=== PATIENT | female | born 1990 | race Asian ===

== ENCOUNTER 2021-05-05 09:05 | Emergency (ER) | payer OTHER, BC ==
[~2021-05-05] VITALS: Ht 149.9 cm; Wt 47.7 kg
[~2021-05-05 09:05] MED LIST: RALTEGRAVIR 400 MG TAB (ISENTRESS) PO SCH; TRUVADA 200MG/300MG TABLET PO SCH
[2021-05-05 09:27] VITALS: BP 104/58
[2021-05-05] MEDS ORDERED: CLAR10CA3 PO (09:30)
[2021-05-05] MEDS ORDERED: PROAAER10 INH (09:31)
--- OUTSIDE RECORDS SUMMARY | 2021-05-05 09:39 | CCD ---
[facility] Address Unknown Phone Unavailable Support Name Relationship Address Phone [facility] Next Of Kin [address], [place] [id number] Re-disclosure Warning The records that you are about to access may contain information from federally-assisted alcohol or drug abuse programs. If such information is present, then the following federally mandated warning applies: This information has been disclosed to you from records protected by federal confidentiality rules (42 CFR part 2). The federal rules prohibit you from making any further disclosure of this information unless further disclosure is expressly permitted by the written consent of the person to whom it pertains or as otherwise permitted by 42 CFR part 2. A general authorization for the release of medical or other information is NOT sufficient for this purpose. The Federal rules restrict any use of the information to criminally investigate or prosecute any alcohol or drug abuse patient.The records that you are about to access may contain highly sensitive health information, the redisclosure of which is protected by Article 27-F of the [facility] Public Health law. If you continue you may have access to information: Regarding HIV / AIDS; Provided by facilities licensed or operated by the [facility] Office of Mental Health; or Provided by the [facility] Office for People With Developmental Disabilities. If such information is present, then the following [facility] mandated warning applies: This information has been disclosed to you from confidential records which are protected by state law. State law prohibits you from making any further disclosure of this information without the specific written consent of the person to whom it pertains, or as otherwise permitted by law. Any unauthorized further disclosure in violation of state law may result in a fine or [place] [facility] sentence or both. A general authorization for the release of medical or other information is NOT sufficient authorization for further disc losure. Medications Medication Brand Name Start Date Product Form Dose Route Admi nistrative Instructions Pharmacy Instructions Status Indications Reaction Description Data Source(s) 0.025 % 05/03/2021 12:00:00 AM EDT cream 15 APPLY TOPICALLY TWO TIMES A DAY FOR 10 DAYS APPLY TOPICALLY TWO TIMES A DAY FOR 10 DAYS SOLD: 05/03/2021 [facility] 90 mcg/actuation 05/03/2021 12:00:00 AM EDT HFA aerosol inha ler 6 INHALE 1 TO 2 PUFFS EVERY 4 HOURS NEEDED FOR WHEEZING FOR 10 DAYS INHALE 1 TO 2 PUFFS EVERY 4 HOURS NEEDED FOR WHEEZING FOR 10 DAYS SOLD: 05/03/2021 [facility] 1 % 05/03/2021 12:00:00 AM EDT cream 30 APPLY TOPICALLY TWO TIMES A DAY FOR 14 DAYS APPLY TOPICALLY TWO TIMES A DAY FOR 14 DAYS SOLD: 05/03/2021 [facility] 60 mcg (15 mcg x 4)/0.5 mL 05/01/2021 12:00:00 AM EDT syring e 0 INJECT DIRECTED INJECT DIRECTED SOLD: 05/01/2021 [facility] NITROFURANTOIN, MACROCRYSTALS 25 MG / Ni trofurantoin, Monohydrate 75 MG Oral Capsule 100 mg NITROFURANTOIN MONOHYD/M-CRYST 03/28/2021 12:00:00 AM EDT ca psule 14 TAKE ONE CAPSULE BY MOUTH TWICE A DAY FOR 7 DAYS TAKE ONE CAPSULE BY MOUTH TWICE A DAY FOR 7 DAYS SOLD: 03/28/2021 [facility] montelukast 5 MG Chewable Tablet MONTELUKAST SODIUM 03/06/2021 1 2:00:00 AM EDT tablet,chewable 30 CHEW ONE TABLET BY MOUTH EVERY D AY AT BEDTIME CHEW ONE TABLET BY MOUTH EVERY DAY AT BEDTIME SOLD: 04/11/2021 [facility] montelukast 5 MG Chewable Tablet MONTELUKAST SODIUM 03/06/2021 1 2:00:00 AM EDT tablet,chewable 30 CHEW ONE TABLET BY MOUTH EVERY D AY AT BEDTIME CHEW ONE TABLET BY MOUTH EVERY DAY AT BEDTIME SOLD: 03/11/2021 [facility] Insurance Providers Payer name Policy type / Coverage type Policy ID Covered libertarian ID Covered libertarian's relationship to goodman Policy [place] [facility] Information [phone] [id number] SP [id number] [facility] [id number] SP [id number] Problems, Conditions, and Diagnoses No Information Surgeries/Procedures No Information Results No Information Social History No Information
[2021-05-05] MEDS ORDERED: EXPOSURE KIT-ADULT 7 DAY SUPPLY PO ONE (09:50)
[2021-05-05] MEDS ORDERED: TRUVADA 200MG/300MG TABLET PO ONE (10:00)
[2021-05-05] MEDS ORDERED: RALTEGRAVIR 400 MG TAB (ISENTRESS) PO ONE (10:00)
[2021-05-05] MEDS ORDERED: RALT40TA PO (10:01)
[2021-05-05] MEDS ORDERED: EMTR1TAB16 PO (10:01)
[2021-05-05 10:06] LABS: BASO % 0.3 % (0.0-1.0); EOS # 0.1 10^3/uL (0.0-0.5); EOS % 1.7 % (0.0-3.0); HEMATOCRIT 38.3 % (36.0-47.0); HEMOGLOBIN 12.8 g/dl (12.0-15.5); LYMPH # 1.8 10^3/uL (1.5-5.0); LYMPH % 25.2 % (24.0-44.0); MEAN CORPUSCULAR HGB CONC 33.4 g/dl (32.0-36.5); MEAN CORPUSCULAR VOLUME 95.8 fl (80.0-96.0); MONO # 0.4 10^3/uL (0.0-0.8); MONO % 6.1 % (2.0-8.0); NEUTROPHILS # 4.7 10^3/uL (1.5-8.5); NEUTROPHILS % 66.3 % (36.0-66.0); PLATELET COUNT, AUTOMATED 290 10^3/uL (150-450); WHITE BLOOD COUNT 7.1 10^3/uL (4.0-10.0)
[2021-05-05] MEDS ORDERED: ONDA4TAB6 PO (10:11)
[2021-05-05 10:34] LABS: HCG, SERUM QUALITATIVE NEGATIVE (NEGATIVE)
[2021-05-05 10:35] LABS: ALT/SGPT 16 U/L (12-78); BILIRUBIN,TOTAL 0.5 MG/DL (0.2-1.0); BLOOD UREA NITROGEN 9 MG/DL (7-18); CALCIUM LEVEL 9.4 MG/DL (8.5-10.1); CARBON DIOXIDE LEVEL 27 MEQ/L (21-32); CHLORIDE LEVEL 112 MEQ/L (98-107); GLOMERULAR FILTRATION RATE > 60.0 (>60); GLUCOSE, FASTING 87 MG/DL (70-100); POTASSIUM SERUM 4.5 MEQ/L (3.5-5.1); SODIUM LEVEL 144 MEQ/L (136-145); TOTAL PROTEIN 7.2 GM/DL (6.4-8.2)
[2021-05-05 10:42] LABS: HEPATITIS B SURFACE ANTIBODY POSITIVE (POSITIVE)
[2021-05-05 10:53] LABS: HEPATITIS B SURFACE ANTIGEN NEGATIVE (NEGATIVE)
[2021-05-05 11:21] LABS: HEPATITIS C VIRUS ABY INDEX < 0.0 INDEX (<0.8)
[2021-05-05 11:22] LABS: HIV SCREEN CENTAUR EXPOSED NEGATIVE (NEGATIVE)
== END 2021-05-05 10:30 | disposition home or self-care (01) ==
LOC: M ED 09:05
DX: S61.233A Puncture wound without foreign body of left middle finger without damage to nail, initial encounter (principal); Z77.21 Contact with and (suspected) exposure to potentially hazardous body fluids; W46.1XXA Contact with contaminated hypodermic needle, initial encounter; Y92.238 Other place in hospital as the place of occurrence of the external cause; Y93.9 Activity, unspecified; Y99.0 Civilian activity done for income or pay; J45.909 Unspecified asthma, uncomplicated; F41.9 Anxiety disorder, unspecified; Z79.899 Other long term (current) drug therapy

== ENCOUNTER → 2021-10-14 | Outpatient (REF) ==
[~2021-10-14] MED LIST changes: +CLAR10CA3 PO; +EMTR1TAB16 PO; +ONDA4TAB6 PO; +PROAAER10 INH; +RALT40TA PO; -RALTEGRAVIR 400 MG TAB (ISENTRESS) PO SCH; -TRUVADA 200MG/300MG TABLET PO SCH
[2021-10-14 08:37] LABS: RSV AMPLIFICATION NEGATIVE (NEGATIVE)
== END ==
LOC: M EMP 07:30
PROVIDERS: ATTEND Family Medicine
DX: Z20.822 Contact with and (suspected) exposure to COVID-19 (principal)

== ENCOUNTER 2022-04-22 22:38 | Emergency (ER) | payer BC, OTHER ==
[~2022-04-22] VITALS: Ht 149.9 cm; Wt 45.5 kg
[2022-04-22 22:38] VITALS: BP 121/75
[2022-04-22] MEDS ORDERED: CLAR10CA3 PO (22:45)
[2022-04-22] MEDS ORDERED: SING10TA32 PO (22:45)
[2022-04-23 00:55] LABS: BASO # 0.1 10^3/uL (0.0-0.2); BASO % 0.4 % (0.0-1.0); EOS # 0.3 10^3/uL (0.0-0.5); EOS % 2.2 % (0.0-3.0); HEMATOCRIT 39.4 % (36.0-47.0); HEMOGLOBIN 13.2 g/dl (12.0-15.5); LYMPH # 2.5 10^3/uL (1.5-5.0); LYMPH % 20.9 % (24.0-44.0); MEAN CORPUSCULAR HEMOGLOBIN 31.8 pg (27.0-33.0); MEAN CORPUSCULAR HGB CONC 33.5 g/dl (32.0-36.5); MEAN CORPUSCULAR VOLUME 94.9 fl (80.0-96.0); MONO # 1.1 10^3/uL (0.0-0.8); NEUTROPHILS # 7.9 10^3/uL (1.5-8.5); NEUTROPHILS % 67.2 % (36.0-66.0); PLATELET COUNT, AUTOMATED 305 10^3/uL (150-450); RED BLOOD COUNT 4.15 10^6/uL (4.00-5.40); WHITE BLOOD COUNT 11.7 10^3/uL (4.0-10.0)
[2022-04-23] MEDS ORDERED: PRED20TA PO (01:25)
[2022-04-23 01:40] LABS: BLOOD UREA NITROGEN 16 MG/DL (7-18); CARBON DIOXIDE LEVEL 24 MEQ/L (21-32); CHLORIDE LEVEL 110 MEQ/L (98-107); CREATININE FOR GFR 0.82 MG/DL (0.55-1.30); GLOMERULAR FILTRATION RATE > 60.0 (>60); GLUCOSE, FASTING 82 MG/DL (70-100); MAGNESIUM LEVEL 2.2 MG/DL (1.8-2.4); POTASSIUM SERUM 3.9 MEQ/L (3.5-5.1); SODIUM LEVEL 140 MEQ/L (136-145); URIC ACID 5.1 MG/DL (2.6-6.0)
[2022-04-23 02:16] LABS: ERYTHROCYTE SEDIMENTATION RATE 6 mm/hr (0-20)
[2022-04-25 13:07] LABS: ANTINUCLEAR ANTIBODIES DIRECT Negative (Negative)
== END 2022-04-23 02:17 | disposition home or self-care (01) ==
LOC: M ED 22:38
DX: M10.071 Idiopathic gout, right ankle and foot (principal); F10.10 Alcohol abuse, uncomplicated; J45.909 Unspecified asthma, uncomplicated; Z91.018 Allergy to other foods; Z79.51 Long term (current) use of inhaled steroids; Z79.899 Other long term (current) drug therapy

== ENCOUNTER → 2022-05-26 | Outpatient (CLI) | payer BC ==
[~2022-05-26] MED LIST changes: +PRED20TA PO; +SING10TA32 PO
[2022-05-26 18:19] LABS: BASO % 0.4 % (0.0-1.0); EOS # 0.1 10^3/uL (0.0-0.5); EOS % 1.4 % (0.0-3.0); HEMATOCRIT 38.3 % (36.0-47.0); HEMOGLOBIN 12.6 g/dl (12.0-15.5); LYMPH # 2.5 10^3/uL (1.5-5.0); LYMPH % 35.9 % (24.0-44.0); MEAN CORPUSCULAR HEMOGLOBIN 32.5 pg (27.0-33.0); MEAN CORPUSCULAR HGB CONC 32.9 g/dl (32.0-36.5); MEAN CORPUSCULAR VOLUME 98.7 fl (80.0-96.0); MONO # 0.6 10^3/uL (0.0-0.8); MONO % 8.6 % (2.0-8.0); NEUTROPHILS # 3.8 10^3/uL (1.5-8.5); NEUTROPHILS % 53.6 % (36.0-66.0); PLATELET COUNT, AUTOMATED 300 10^3/uL (150-450); RED BLOOD COUNT 3.88 10^6/uL (4.00-5.40); WHITE BLOOD COUNT 7.1 10^3/uL (4.0-10.0)
[2022-05-26 18:56] LABS: ALBUMIN 4.1 G/DL (3.2-5.2); ALT/SGPT 13 U/L (7.0-40); BILIRUBIN,TOTAL 1.5 MG/DL (0.3-1.2); BLOOD UREA NITROGEN 13 MG/DL (9-23); CARBON DIOXIDE LEVEL 24 MMOL/L (20-31); CHLORIDE LEVEL 107 MMOL/L (98-107); CREATININE FOR GFR 0.71 MG/DL (0.55-1.30); GLOMERULAR FILTRATION RATE > 60.0 (>60); GLUCOSE, FASTING 109 MG/DL (60-100); POTASSIUM SERUM 4.4 MMOL/L (3.5-5.1); RHEUMATOID FACTOR QUANT < 3.5 IU/ML (<14); SODIUM LEVEL 141 MMOL/L (136-145); TOTAL PROTEIN 6.7 G/DL (5.7-8.2); URIC ACID 4.7 MG/DL (3.1-7.8)
[2022-05-26 21:37] LABS: ERYTHROCYTE SEDIMENTATION RATE 14 mm/hr (0-20)
== END ==
LOC: M PLALAB 12:38
PROVIDERS: ATTEND Student in an Organized Health Care Education/Training Program
DX: Z00.00 Encounter for general adult medical examination without abnormal findings (principal)

== ENCOUNTER → 2022-07-27 | Outpatient (CLI) | payer BC | LOC: M SOG 08:11 | PROVIDERS: ATTEND Orthopaedic Surgery | DX: M25.551 Pain in right hip (principal) ==

== ENCOUNTER → 2022-08-13 | Outpatient (CLI) | payer BC | LOC: M RAD 08:07 | PROVIDERS: ATTEND Orthopaedic Surgery | DX: Q65.89 Other specified congenital deformities of hip (principal) ==

== ENCOUNTER → 2023-02-21 | Outpatient (CLI) | payer BC ==
[~2023-02-21] MED LIST changes: +LEVOTAB10 PO; +MONT-5 PO; -SING10TA32 PO
[2023-02-21 13:11] LABS: BASO % 0.5 % (0.0-1.0); EOS # 0.3 10^3/uL (0.0-0.5); EOS % 3.9 % (0.0-3.0); HEMATOCRIT 41.1 % (36.0-47.0); HEMOGLOBIN 13.5 g/dl (12.0-15.5); LYMPH # 2.1 10^3/uL (1.5-5.0); LYMPH % 26.3 % (24.0-44.0); MEAN CORPUSCULAR HEMOGLOBIN 32.4 pg (27.0-33.0); MEAN CORPUSCULAR HGB CONC 32.8 g/dl (32.0-36.5); MEAN CORPUSCULAR VOLUME 98.6 fl (80.0-96.0); MONO # 0.5 10^3/uL (0.0-0.8); MONO % 6.5 % (2.0-8.0); NEUTROPHILS # 4.9 10^3/uL (1.5-8.5); NEUTROPHILS % 62.5 % (36.0-66.0); PLATELET COUNT, AUTOMATED 344 10^3/uL (150-450); RED BLOOD COUNT 4.17 10^6/uL (4.00-5.40); WHITE BLOOD COUNT 7.9 10^3/uL (4.0-10.0)
[2023-02-21 13:19] LABS: ERYTHROCYTE SEDIMENTATION RATE 11 mm/hr (0-20)
[2023-02-21 13:36] LABS: C REACTIVE PROTEIN QUANTITATIV < 0.40 MG/DL (<1.0)
[2023-02-21 13:37] LABS: ALBUMIN 4.3 G/DL (3.2-5.2); ALKALINE PHOSPHATASE 55 U/L (46-116); ALT/SGPT 13 U/L (7.0-40); AST/SGOT < 8 U/L (<34); BLOOD UREA NITROGEN 11 MG/DL (9-23); CALCIUM LEVEL 9.4 MG/DL (8.5-10.1); CARBON DIOXIDE LEVEL 27 MMOL/L (20-31); CHLORIDE LEVEL 105 MMOL/L (98-107); CREATININE FOR GFR 0.72 MG/DL (0.55-1.30); GLOMERULAR FILTRATION RATE > 60.0 (>60); GLUCOSE, FASTING 90 MG/DL (60-100); POTASSIUM SERUM 3.8 MMOL/L (3.5-5.1); SODIUM LEVEL 141 MMOL/L (136-145); TOTAL PROTEIN 7.5 G/DL (5.7-8.2)
[2023-03-02 20:08] LABS: ANTI CENTROMERE ANTIBODY <0.2 AI (0.0-0.9); ANTI DS-DNA AB Negative (Negative); ANTI SCLERODERMA ANTIBODIES <0.2 AI (0.0-0.9); ANTI SMITH(Sm) AB <20 Units (<20); HLA-B27 Negative (.); SSA SJOGRENS A <0.2 AI (0.0-0.9); SSB SJOGRENS B <0.2 AI (0.0-0.9)
== END ==
LOC: M RAD 12:01
PROVIDERS: ATTEND Internal Medicine Rheumatology
DX: M79.671 Pain in right foot (principal); R21 Rash and other nonspecific skin eruption; R23.0 Cyanosis; H04.123 Dry eye syndrome of bilateral lacrimal glands

== ENCOUNTER → 2023-08-28 | Outpatient (REF) | LOC: M EMP 09:49 | PROVIDERS: ATTEND Family Medicine | DX: Z20.822 Contact with and (suspected) exposure to COVID-19 (principal) ==

== ENCOUNTER → 2023-08-29 | Outpatient (REF) | LOC: M EMP 09:02 | PROVIDERS: ATTEND Family Medicine | DX: Z11.52 Encounter for screening for COVID-19 (principal) ==

== ENCOUNTER → 2023-10-30 | Outpatient (CLI) | payer BC | LOC: M PLAIMG 13:29 | PROVIDERS: ATTEND Student in an Organized Health Care Education/Training Program | DX: Z87.74 Personal history of (corrected) congenital malformations of heart and circulatory system (principal) ==

== ENCOUNTER → 2023-12-05 | Outpatient (REF) | LOC: M EMP 12:39 | PROVIDERS: ATTEND Family Medicine | DX: Z11.52 Encounter for screening for COVID-19 (principal) ==